=== PATIENT | male | born 1955 | race Caucasian/White ===

== ENCOUNTER 2023-09-19 21:54 | Emergency (ER) | payer MEDICARE, OTHER, SELFPAY ==
[2023-09-19 21:58] VITALS: BP 187/85; PULSE 95; TEMP 36.8; O2SAT 97; BMI 25.1
--- NOTE | 2023-09-19 22:06 | ED.GENADUL1 ---
HPI HPI - General Adult General Chief complaint: Back Pain/Injury Stated complaint: Back Pain Time Seen by Provider: 09/19/23 21:58 Source: patient Mode of arrival: walk-in Limitations: no limitations History of Present Illness HPI narrative: 68-year-old male presents for right flank area pain. It started 2 hours ago while he was sitting on the couch. There was no injury or unusual activity. It does not seem to radiate. He has never had a kidney stone. No dysuria or hematuria. The pain is moderate. Related Data Home Medications ?Medication ?Instructions ?Recorded ?Confirmed amlodipine 10 mg tablet 10 mg PO DAILY 09/19/23 09/19/23 atorvastatin 20 mg tablet 20 mg PO DAILY 09/19/23 09/19/23 Previous Rx's ?Medication ?Instructions ?Recorded hydrocodone 5 mg-acetaminophen 325 1 tab PO Q6H PRN pain 5 days #20 09/19/23 mg tablet tabs ondansetron 4 mg disintegrating 4 mg PO Q6H PRN nausea and 09/19/23 tablet vomiting #20 tabs tamsulosin 0.4 mg capsule (Flomax) 0.4 mg PO DAILY #7 caps 09/19/23 Allergies Allergy/AdvReac Type Severity Reaction Status Date / Time No Known Drug Allergies Allergy Verified 09/19/23 22:02 Opioid HPI Opioid Management Most Recent Opioid Data: Last Pain Scale 3 09/19/23 23:25 Last ED Pain Assessment 09/19/23 23:25 Review of Systems ROS Narrative A ten point review of systems is negative except as noted above. Exam Narrative Exam Narrative: Nurses note and vital signs reviewed and patient is not hypoxic. General: The patient is standing when I walk into the room. Skin: Warm, dry, no pallor noted. Head: Normocephalic, atraumatic Eye: Normal conjunctiva, no drainage Ears, Nose, Mouth, and Throat: oral mucosa is moist. Nares patent. Cardiovascular: Regular Rate and Rhythm Respiratory: Patient is in no distress, no accessory muscle use, lungs are clear to auscultation, no wheezing, rales or rhonchi Back: non-tender, no CVA tenderness bilaterally to percussion. He has some areas of erythema that he states is dry skin and he always has that. GI: Soft and Musculoskeletal: The patient has no evidence of calf tenderness, no pitting edema, symmetrical pulses noted bilaterally Neurological: A&O, normal speech Psychiatric: Cooperative Constitutional Vital Signs, click to edit/add: Last Vital Signs Temp 98.2 F 09/19/23 21:58 Pulse 95 H 09/19/23 21:58 Resp 18 09/19/23 21:58 BP 187/85 H 09/19/23 21:58 Pulse Ox 97 09/19/23 21:58 O2 Del Method Room Air 09/19/23 21:58 Course Vital Signs Vital signs: Vital Signs Temperature 98.2 F 09/19/23 21:58 Pulse Rate 95 H 09/19/23 21:58 Respiratory Rate 18 09/19/23 21:58 Blood Pressure 187/85 H 09/19/23 21:58 Pulse Oximetry 97 09/19/23 21:58 Oxygen Delivery Method Room Air 09/19/23 21:58 Temperature 98.2 F 09/19/23 21:58 Pulse Rate 95 H 09/19/23 21:58 Respiratory Rate 18 09/19/23 21:58 Blood Pressure 187/85 H 09/19/23 21:58 Pulse Oximetry 97 09/19/23 21:58 Oxygen Delivery Method Room Air 09/19/23 21:58 Medical Decision Making MDM Narrative Medical decision making narrative: 3 mm distal ureteral stone is identified. He is feeling much better and is able to be discharged home and was referred to urology. Treatment diagnosis and follow-up were discussed with the patient. Differential Diagnosis Differential Diagnosis: Kidney stone, muscle strain, UTI Lab Data Lab results reviewed: Yes I reviewed the patient's lab results Labs: Lab Results 09/19/23 Range/Units 22:14 WBC 14.2 H (4.0-11.0) 10^3/uL RBC 4.85 (4.70-6.10) 10^6/uL Hgb 15.3 (14.0-18.0) g/dL Hct 46.0 (42.0-54.0) % MCV 94.8 H (80.0-94.0) fL MCH 31.5 (25.9-34.0) pg MCHC 33.3 (29.9-35.2) g/dL RDW 12.6 (11.0-15.0) % Plt Count 255 (150-450) 10^3/uL MPV 10.0 (9.5-13.5) fL Neut % (Auto) 86.9 H (43.0-75.0) % Lymph % (Auto) 6.8 L (20.5-60.0) % [place] % (Auto) 4.7 (1.7-12.0) % Eos % (Auto) 0.6 L (0.9-7.0) % Baso % (Auto) 0.6 (0.2-2.0) % Neut # (Auto) 12.3 H (1.4-6.5) 10^3/uL Lymph # (Auto) 1.0 L (1.2-3.8) 10^3/uL [place] # (Auto) 0.7 (0.3-0.8) 10^3/uL Eos # (Auto) 0.1 (0.0-0.7) 10^3/uL Baso # (Auto) 0.1 (0.0-0.1) 10^3/uL Abs Immat Gran (auto) 0.05 H (0.00-0.03) 10^3/uL Imm/Tot Granulo (auto) 0.4 (0.0-0.5) % Sodium 140 (136-145) mmol/L Potassium 3.9 (3.5-5.1) mmol/L Chloride 103 (98-107) mmol/L Carbon Dioxide 25.2 (21.0-32.0) mmol/L Anion Gap 15.7 BUN 20.0 H (7.0-18.0) mg/dL Creatinine 1.38 H (0.70-1.30) mg/dL Est GFR ( Amer) >60 (>=60) Est GFR (Non-Af Amer) 51 L (>=60) BUN/Creatinine Ratio 14.5 Glucose 160 H (74-106) mg/dL Calcium 9.2 (8.5-10.1) mg/dL Urine Color Lt. yellow (YELLOW) Urine Clarity Clear (CLEAR) Urine pH 7.5 (5.0-9.0) Ur Specific Dragoon 1.020 (1.005-1.025) Urine Protein Trace (NEG/TRACE) mg/dL Urine Glucose (UA) Negative (NEGATIVE) mg/dL Urine Ketones Negative (NEGATIVE) mg/dL Urine Occult Blood Trace-i (NEGATIVE) Urine Nitrite Negative (NEGATIVE) Urine Bilirubin Negative (NEGATIVE) Urine Urobilinogen 0.2 (0.2-1.0) EU/dL Ur Leukocyte Esterase Negative (NEGATIVE) Urine RBC 0-2 (0-2) #/HPF Urine WBC 0-2 A (NONE SEEN) #/HPF Ur Squamous Epith Cells None seen (NONE/RARE) #/LPF Urine Crystals Seen A (None Seen) #/HPF Amorphous Sediment Many Urine Bacteria Moderate A (NONE SEEN) #/HPF Urine Casts None seen (NONE SEEN) #/LPF Urine Mucus None seen (NONE SEEN) Ur Culture Indicated? Yes Imaging Data CT scan - abdomen: Radiologist's impression: ITS Impressions Abdomen/Pelvis CT 09/19/23 22:32 IMPRESSION: 1. Mild left hydronephrosis and hydroureter related to a 3 millimeter distal ureteral stone. 2. Mild diffuse wall thickening of the bladder, correlate for cystitis. 3. Sigmoid diverticulosis. 4. Small hiatal hernia. Electronically authenticated by: EVELINA LAND Date: 09/19/2023 23:36 Discharge Plan Discharge Stand Alone Forms: Portal Instructions Chief Complaint: Back Pain/Injury Clinical Impression: Kidney stone Patient Disposition: Home, Self-Care Time of Disposition Decision: 23:44 Condition: Good Mode of Transportation: Private Vehicle Prescriptions / Home Meds: New tamsulosin [Flomax] 0.4 mg capsule 0.4 mg PO DAILY Qty: 7 0RF hydrocodone-acetaminophen 5-325 mg tablet 1 tab PO Q6H PRN (Reason: pain) 5 Days Qty: 20 0RF ondansetron 4 mg tablet,disintegrating 4 mg PO Q6H PRN (Reason: nausea and vomiting) Qty: 20 0RF No Action amlodipine 10 mg tablet 10 mg PO DAILY atorvastatin 20 mg tablet 20 mg PO DAILY Print Language: Lithuanian Instructions: Kidney Stones (ED), How to Strain Your Urine (ED) Additional Instructions: Follow-up with Dr. Bell Referrals: [facility] [Primary Care Provider] - 1 week
[2023-09-19 22:21] LABS: Bilirubin Urine NEGATIVE (NEGATIVE); Blood Urine TRACE-I (NEGATIVE); Clarity Urine CLEAR (CLEAR); Color Urine LT. YELLOW (YELLOW); Glucose Urine UA NEGATIVE (NEGATIVE); Ketones Urine NEGATIVE (NEGATIVE); Leukocyte Esterase Urine NEGATIVE (NEGATIVE); Nitrite Urine NEGATIVE (NEGATIVE); Protein Urine TRACE mg/dL (NEG/TRACE); Urobilinogen Urine 0.2 EU/dL (0.2-1.0); pH Urine 7.5 (5.0-9.0)
[2023-09-19 22:22] LABS: Basophils Absolute Auto 0.1 10^3/uL (0.0-0.1); Basophils Percent Auto 0.6 % (0.2-2.0); Eosinophils Absolute Auto 0.1 10^3/uL (0.0-0.7); Eosinophils Percent Auto 0.6 % (0.9-7.0); Hemoglobin 15.3 g/dL (14.0-18.0); Immature Granulocytes Abs Auto 0.05 10^3/uL (0.00-0.03); Immature Granulocytes Pct Auto 0.4 % (0.0-0.5); Lymphocytes Percent Auto 6.8 % (20.5-60.0); Mean Corpuscular HGB Conc 33.3 g/dL (29.9-35.2); Mean Corpuscular Hemoglobin 31.5 pg (25.9-34.0); Mean Corpuscular Volume 94.8 fL (80.0-94.0); Monocytes Absolute Auto 0.7 10^3/uL (0.3-0.8); Monocytes Percent Auto 4.7 % (1.7-12.0); Neutrophils Absolute Auto 12.3 10^3/uL (1.4-6.5); Neutrophils Percent Auto 86.9 % (43.0-75.0); Platelet Count 255 10^3/uL (150-450); Red Blood Count 4.85 10^6/uL (4.70-6.10); Red Cell Distribution Width 12.6 % (11.0-15.0); White Blood Count 14.2 10^3/uL (4.0-11.0)
[2023-09-19] MEDS: MORPHINE SULFATE 4 MG/ML VIAL IV (22:29)
[2023-09-19 22:30] LABS: Amorphous Sediment Urine MANY; Bacteria Urine MODERATE #/HPF (NONE SEEN); Cast Seen? NONE SEEN #/LPF (NONE SEEN); Crystals Seen? Seen #/HPF (None Seen); Mucus Urine NONE SEEN (NONE SEEN); RBC Urine 0-2 #/HPF (0-2); Squamous Epithelial Cell Urine NONE SEEN #/LPF (NONE/RARE); Urine Culture Indicated YES; WBC Urine 0-2 #/HPF (NONE SEEN)
--- NOTE | 2023-09-19 22:32 | CT_ITS ---
The [address] [address] Patient Name: NORBERTO KEITA MRN: [id number] date: 1955 Sex: M Assigned Patient Location: ER Current Patient Location: ER Accession/Order Number: [id number] Exam Date: 09/19/2023 22:40 Report Date: 09/19/2023 23:36 At the request of: DAVID LARSEN Procedure: CT abdomen pelvis wo con EXAM: CT abdomen pelvis wo con HISTORY: flank pain, r/o stone COMPARISON: None. TECHNIQUE: CT of abdomen and pelvis without intravenous contrast. Dose reduction techniques were achieved by using automated exposure control and/or adjustment of mA and/or kV according to patient size and/or use of iterative reconstruction technique. FINDINGS: Limited evaluation of the viscera/organs and vasculature without intravenous contrast. TUBES AND IMPLANTS: None. LOWER CHEST: Small hiatal hernia ABDOMEN and PELVIS ABDOMINAL WALL AND SOFT TISSUES: Unremarkable. BONES: No suspicious lesions. Multilevel degenerative changes of the spine. ARTERIES: Incompletely evaluated. No aortoiliac aneurysm VEINS: Incompletely evaluated. LYMPH NODES: Unremarkable. PERITONEUM/ RETROPERITONEUM: Unremarkable. BOWEL: No obstruction. Moderate sigmoid diverticulosis APPENDIX: Unremarkable LIVER: No suspicious lesions GALLBLADDER: Unremarkable. BILE DUCTS: Not dilated SPLEEN: Unremarkable. PANCREAS: Unremarkable. ADRENALS: Unremarkable. KIDNEYS/ URETERS: No right stones or hydronephrosis. There is mild left hydronephrosis and hydroureter related to a 3 millimeter distal ureteral stone. Left renal cyst REPRODUCTIVE ORGANS: Unremarkable URINARY BLADDER: Mild diffuse wall thickening. CT/CT abdomen pelvis wo con IMPRESSION: 1. Mild left hydronephrosis and hydroureter related to a 3 millimeter distal ureteral stone. 2. Mild diffuse wall thickening of the bladder, correlate for cystitis. 3. Sigmoid diverticulosis. 4. Small hiatal hernia. Electronically authenticated by: EVELINA LAND Date: 09/19/2023 23:36
[2023-09-19 22:33] LABS: Anion Gap 15.7; BUN Creatinine Ratio 14.5; Calcium 9.2 mg/dL (8.5-10.1); Carbon Dioxide 25.2 mmol/L (21.0-32.0); Chloride 103 mmol/L (98-107); Estimated GFR (African America >60 (>=60); Estimated GFR (Non-African Ame 51 (>=60); Glucose 160 mg/dL (74-106); Potassium 3.9 mmol/L (3.5-5.1); Sodium 140 mmol/L (136-145)
[2023-09-19] MEDS: KETOROLAC TROMETHAMINE 30 MG/ML VIAL IVP (23:04)
[2023-09-20] MEDS: HYDROCODONE/ACET 5-325 MG TABLET 1 TAB PO (00:03)
[2023-09-20 00:04] VITALS: BP 154/87; PULSE 98; O2SAT 96
== END 2023-09-20 00:06 | disposition home or self-care (01) ==
PROVIDERS: Emergency Provider Emergency Medicine
DX: N20.0 Calculus of kidney (principal); Z79.899 Other long term (current) drug therapy
CPT/HCPCS: 36415; 74176; 80048; 81001; 85025; 87086; 96374; 96375; 99285

== ENCOUNTER 2023-10-06 12:23 | Outpatient (OUT) | payer MEDICARE, OTHER, SELFPAY ==
--- NOTE | 2023-10-06 12:38 | XR_ITS ---
The [address] [address] Patient Name: NORBERTO KEITA MRN: [id number] date: 1955 Sex: M Assigned Patient Location: [facility] Current Patient Location: [facility] Accession/Order Number: [id number] Exam Date: 10/06/2023 12:30 Report Date: 10/06/2023 15:01 At the request of: BRETT HAN Procedure: XR abdomen 1V EXAMINATION: XR abdomen 1V HISTORY: kidney stone N20.0 COMPARISON: 09/19/2023 FINDINGS: KIDNEY/URETER - RIGHT: No visible renal or ureteral calcifications. KIDNEY/URETER - LEFT: No visible renal or ureteral calcifications. PELVIS: 3 mm left pelvic calcification possibly a distal ureterolith. Additional pelvic calcifications are likely phleboliths BOWEL: No abnormal dilation or deviation. BONES: No acute abnormality. OTHER: Negative. No abnormal gaseous collections. XR/XR abdomen 1V IMPRESSION: Possible distal left ureterolith seen by prior CT exam Electronically authenticated by: MARV ALEXANDER Date: 10/06/2023 15:01
== END 2023-10-06 12:24 | disposition home or self-care (01) ==
LOC: RAD 12:23
PROVIDERS: Visit Provider Urology
DX: N20.0 Calculus of kidney (principal)
CPT/HCPCS: 74018

== ENCOUNTER 2023-11-09 07:58 | Outpatient (OUT) | payer MEDICARE, OTHER, SELFPAY ==
--- NOTE | 2023-11-09 08:17 | XR_ITS ---
[address] [address] Patient Name: NORBERTO KEITA MRN: [id number] date: 1955 Sex: M Assigned Patient Location: LAB Current Patient Location: LAB Accession/Order Number: [id number] Exam Date: 11/09/2023 08:40 Report Date: 11/09/2023 10:53 At the request of: BRETT HAN Procedure: XR IVP w KUB EXAMINATION: XR IVP w KUB HISTORY: Ureteral Stone With Hydronephrosis COMPARISON: XR abdomen 10/06/2023, CT abdomen pelvis 09/19/2023 TECHNIQUE: After obtaining patient consent a applications chemist image was obtained followed by injection of 100cc of Omnipaque 300 IV contrast. Immediate nephrographic images were obtained. Corticomedullary and urographic phase images were obtained at 5, 10, 15 and 20 minutes. 15 minute oblique images were also obtained. FINDINGS: KIDNEY/URETER - RIGHT: No visible calcifications. KIDNEY/URETER - LEFT: No visible calcifications. PELVIS: No visible ureteral calcifications. Pelvic calcifications compatible with phleboliths. NEPHROGRAPHIC PHASE: Normal, symmetric size, contour, and orientation. Normal and symmetric time of contrast uptake. CORTICOMEDULLARY: No mass or abnormal appearing medulla, pyramids, or collecting system. UROGRAPHIC PHASE: Normal caliber, course, and number of ureters. BLADDER: Normal size and contour. Completely empty after voiding. BOWEL: No abnormal dilation or deviation. BONES: No acute abnormality. OTHER: Negative. No abnormal gaseous collections. XR/XR IVP w KUB IMPRESSION: 1. No appreciable renal or ureteral stones. No obstruction, stricture, or abnormal dilation. Findings suggest passage of previously seen tiny distal left ureteral stone. Electronically authenticated by: CRUZITO ROBBINS Date: 11/09/2023 10:53
[2023-11-09 08:19] LABS: Estimated GFR (African America >60 (>=60); Estimated GFR (Non-African Ame >60 (>=60)
== END 2023-11-09 07:59 | disposition home or self-care (01) ==
LOC: LAB 07:58
PROVIDERS: Visit Provider Urology
DX: N13.2 Hydronephrosis with renal and ureteral calculous obstruction (principal); N20.0 Calculus of kidney
CPT/HCPCS: 36415; 74400; 82565; Q9967